=== PATIENT | male | born 1980 | race Hispanic/Latino ===

== ENCOUNTER → 2019-02-16 | Outpatient (CLI) | payer OTHER ==
--- NOTE | 2019-02-16 14:45 | Diagnostic Imaging Report ---
EXAMINATION: SP LUMBAR, COMPLETE MIN 4VW INDICATION: Back pain COMPARISON: None FINDINGS: AP, lateral, and oblique images of the lumbar spine were obtained. No acute fracture or dislocation. Alignment is anatomic. Vertebral body heights are maintained. Minimal lower lumbar spine facet arthropathy. No spondylolysis or spondylolisthesis nonobstructive bowel gas pattern. No free air. IMPRESSION: Anatomic alignment of the lumbar spine. Minimal lower lumbar spine facet arthropathy. Signed by: Karely Espino MD on 02/16/2019 2:42 PM
--- NOTE | 2019-02-16 14:46 | Diagnostic Imaging Report ---
EXAMINATION: SACRUM X-RAY INDICATION: Back pain COMPARISON: None FINDINGS: No acute fracture or dislocation. Alignment is anatomic. IMPRESSION: No acute osseous injury of the sacrum. Signed by: Karely Espino MD on 02/16/2019 2:43 PM
== END ==
LOC: RAD 13:55
PROVIDERS: ATTEND Internal Medicine
DX: M47.817 Spondylosis without myelopathy or radiculopathy, lumbosacral region (principal); M51.26 Other intervertebral disc displacement, lumbar region
CPT/HCPCS: 72110; 72220